=== PATIENT | female | born 1950 | race Hispanic/Latino ===

== ENCOUNTER → 2018-05-17 | Day surgery (SDC) | payer OTHER, BC ==
[2011-10-09 20:57] VITALS: BP 134/73
--- NOTE | 2018-05-17 11:00 | RAD REPORT ---
EXAM DESCRIPTION: Ultrasound-guided vacuum assisted left breast core biopsy CLINICAL HISTORY: Breast mass R92.8 COMPARISON: No comparisons FINDINGS: Informed consent was obtained and time-out was performed. The patient's left breast was prepped and draped in the usual sterile fashion. 1% lidocaine was used for local anesthetic purposes. Utilizing aseptic technique and ultrasound guidance, a 12 gauge vacuum assisted core biopsy device wa s used to obtain 2 core specimens through the mass of interest upper-outer quadrant left breast. A po st biopsy clip was then placed. All collected material was sent for cytology. Patient tolerated procedure well. IMPRESSION: Successful ultrasound guided vacuum assisted left breast mass biopsy.
== END ==
LOC: RAD 10:08
PROVIDERS: ATTEND Student in an Organized Health Care Education/Training Program
DX: C50.412 Malignant neoplasm of upper-outer quadrant of left female breast (principal); Z17.1 Estrogen receptor negative status [ER-]
CPT/HCPCS: 19083; 88305

== ENCOUNTER 2019-05-09 12:25 | Emergency (ER) | payer OTHER, BC ==
--- OUTSIDE RECORDS SUMMARY | 2019-05-09 12:42 | XMS REPORT | Summary of Care ---
:1950 Author Name Elaine Tracy M.A. Address Unavailable Unavailable , Care Team Providers Name Role Phone MATTHIAS Solorzano, ALEXANDRA Unavailable Unavailable MATTHIAS DICKERSON DC, ALEXANDRA Unavailable Unavailable Unavailable Unavailable Unavailable Functional Status Name Dates Details Functional status health issues are not documented Status: Name Dates Details Cognitive status health issues are not documented Status: Problems Name Dates Details Localized primary osteoarthritis of lower leg, right (715.16, M17.11) Status : Active Chronic pain of right knee (719.46, M25.561) Status: Active Medications Name Dates Details traMADol HCl - 50 MG Oral Tablet TAKE ONE TABLET BY MOUTH EVERY 8 HOURS NEEDED FOR PAIN Quantity: 30 Refills: 0 MATTHIAS M.D., ALEXANDRA Start : 06-Mar-2019 Active traMADol HCl - 50 MG Oral Tablet TAKE ONE TABLET BY MOUTH EVERY 8 HOURS NEEDED FOR PAIN Quantity: 30 Refills: 0 MATTHIAS M.D., ALEXANDRA Start : 04-Apr-2019 Active Allergies and Adverse Reactions Name Dates Details No Known Drug Allergies (Allergy) Status: Active Procedures Procedure Dates Details [QLH] CBC (INCLUDES DIFF/PLT) Date: 04-Apr-2019 [QLH] SED RATE BY MODIFIED WESTERGREN Date: 04-Apr-2019 [QLH] C-REACTIVE PROTEIN Date: 04-Apr-2019 Immunization Name Dates Details Immunizations not documented Social History Name Dates Details Unknown if ever smoked Vital Signs Date Test Result Details No Known Vitals to report Results Date Description Value Details [id number] US Extremity lower limited non vasc 40870 Extremity lower limited non SEE NOTES Comments: EXAM: Ext Lower limited non vascular USDATE: 03/22/2019 12:32 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 She presents with intermittent knee pain and apulling sensation. She endorses tenderness at the lateral and posterolateralaspect of her knee.COMPARISON: None avai lable.TECHNIQUE: Grayscale and color Doppler ultrasound of the posterior knee,backscanned by a musculoskeletal radiologist.FINDINGS:* No mass or lymphadenopathy is identified.* A small, simple-appeari ng, popliteal fossa cyst is identified about theposteromedial aspect of the knee. It measures approximately 1.0 x 0.5 x 0.6 cm(image 35). The patient does not endorse tenderness at this level.* At the area of maximum tenderness, limited images of the lateral knee werewithout a focal abnormality to explain the patient's symptoms.* Risks and benefits of a possible aspiration and steroid injection of t heBaker's cyst were discussed with the patient and Dr. Mullen's physician 'sassistant. The patient did not wish to pursue injection of the Nolan's cyst atthis time.IMPRESSION:1. No abnormality was ident ified on this limited ultrasound of the RIGHT kneeto explain the patient' s symptoms.2. Small, 1 cm Nolan's cyst.This case was discussed with MARION Pedroza for Dr. Mullen via phone on03/22/2019 at 130 9 hours.--Read by: Landen Jaramilloictated Date/time: 14:44Electronically Signed by: Landen Jaramillo MD 2015:06FINAL REPORT Plan of Care Name Dates Details Planned Observations Planned Goals not documented Planned Encounters Appointment; POLO COULTER, PDarwinADarwin On: 09-May-2019 10:45 Interventions Provided Medication ChangestraMADol HCl - 50 MG Oral Tablet - StartLabs/Procedures/ Imaging[QLH] CBC (INCLUDES DIFF/PLT); To Be Done: 04 Apr 2019[QL] C-REACTIVE PROTEIN; To Be Done: 04 Apr 2019[QL] SED RATE BY MODIFIED WESTERGREN; To Be Done: 04 Apr 2019 Instructions Name Dates Details Instructions not documented Encounters Appointment; ALEXANDRA MULLEN M.D. On: 15-Nov-2018 9:00 Encounter Diagnosis: Problem not documented Appointment; ALEXANDRA MULLEN M.D. On: 06-Mar-2019 13:10 Encounter Diagnosis: Problem not documented Appointment; ALEXANDRA MULLEN M.D. On: 04-Apr-2019 10:10 Encounter Diagnosis: Problem not documented
--- OUTSIDE RECORDS SUMMARY | 2019-05-09 12:42 | XMS REPORT | Summary of Care ---
:1950 Author Name MATTHIAS Solorzano, ALEXANDRA Address [facility] Unavailable , Care Team Providers Name Role Phone MATTHIAS Solorzano, ALEXANDRA Unavailable Unavailable MATTHIAS DICKERSON ND, ALEXANDRA Unavailable Unavailable Unavailable Unavailable Unavailable Functional Status Name Dates Details Functional status health issues are not documented Status: Name Dates Details Cognitive status health issues are not documented Status: Problems Name Dates Details Chronic pain of right knee (719.46, M25.561) Status: Active Medications Name Dates Details traMADol HCl - 50 MG Oral Tablet TAKE ONE TABLET BY MOUTH EVERY 8 HOURS NEEDED FOR PAIN Quantity: 30 Refills: 0 MATTHIAS Solorzano, ALEXANDRA Start : 06-Mar-2019 Active Allergies and Adverse Reactions Name Dates Details No Known Drug Allergies (Allergy) Status: Active Procedures Procedure Dates Details Procedures not documented Immunization Name Dates Details Immunizations not documented Social History Name Dates Details Unknown if ever smoked Vital Signs Date Test Result Details No Known Vitals to report Results Date Description Value Details [id number] [place] [facility] Extremity lower limited non SEE NOTES Comments: EXAM: Ext Lower limited non vascular USDATE: 03/22/2019 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 [...] on03/22/2019 at 130 9 hours.--Read by: Landen Jaramillo MDDictated Date/time: 14:44Electronically Signed by: Landen Jaramillo MD 2015:06FINAL REPORT Plan of Care Name Dates Details Planned Observations Planned Goals not documented Instructions Name Dates Details Instructions not documented Encounters Appointment; ALEXANDRA MULLEN M.D. On: 15-Nov-2018 9:00 Encounter Diagnosis: Problem not documented Appointment; ALEXANDRA MULLEN M.D. On: 06-Mar-2019 13:10 Encounter Diagnosis: Problem not documented
--- OUTSIDE RECORDS SUMMARY | 2019-05-09 12:42 | XMS REPORT | Summary of Care ---
:1950 Author Name MATTHIAS Solorzano, ALEXANDRA Address [facility] Unavailable , Care Team Providers Name Role Phone MATTHIAS Solorzano, ALEXANDRA Unavailable Unavailable MATTHIAS DICKERSON [place], ALEXANDRA Unavailable Unavailable Unavailable Unavailable Unavailable Functional Status Name Dates Details Functional status health issues are not documented Status: Name Dates Details Cognitive status health issues are not documented Status: Problems Name Dates Details Chronic pain of right knee (719.46, M25.561) Status: Active Localized primary osteoarthritis of lower leg, right (715.16, M17.11) Status : Active Medications Name Dates Details traMADol HCl [...] to report Results Date Description Value Details [id number] US Extremity lower limited non vasc 16237 Extremity lower limited non SEE NOTES Comments: EXAM: Ext Lower limited non vascular USDATE: 03/22/2019 12:32 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.INDICATION: M71.21 Synovial cyst of popliteal space [Nolan], right knee.ADDITIONAL INFORMATION: 68-year-old woman status post a remote [facility] () ght total kneearthroplasty 5 [...] Date/time: 14:44Electronically Signed by: Landen Jaramillo MD :06FINAL REPORT [id number] [QLH] CBC (INCLUDES DIFF/PLT) WBC 7.8 {K/CMM} Range: 3.7-10.4 RBC 4.56 {M/CMM} Range: 4.20-5.40 Hgb 12.3 g/dl Range: 12.0-16.0 Hct 39.3 % Range: 36.0-48.0 MCV 86.2 fL Range: 80.0-98.0 MCH 27.0 pg Range: 27.0-31.0 MCHC 31.3 g/dl (Below low threshold) Range: 32.0-36.0 RDW 19.1 % (Above high threshold) Range: 11.5-14.5 Platelet 325 {K/CMM} Range: 133-450 Mean Platelet Volume 10.2 fL Range: 7.4-10.4 [id number] [QLH] Differential Segmented Neutrophils 62.0 % Range: 45.0-75.0 Monocytes 12.6 % (Above high threshold) Range: 2.0-12.0 Lymphocytes 23.5 % Range: 20.0-40.0 Eosinophils 1.0 % Range: 0.0-4.0 Basophils 0.9 % Range: 0.0-1.0 Segs-Bands # 4.8 {K/CMM} Range: 1.5-8.1 Lymphocytes # 1.8 {K/CMM} Range: 1.0-5.5 Monocytes # 1.0 {K/CMM} (Above high threshold) Range: 0.0-0.8 Eosinophils # 0.1 {K/CMM} Range: 0.0-0.5 Basophils # 0.1 {K/CMM} Range: 0.0-0.2 [id number] [QLH] C-REACTIVE PROTEIN CRP 4.5 mg/L (Above high threshold) Range: <=2.9 [id number] [QLH] SED RATE BY MODIFIED WESTERGREN Sedimentation Rate 30 {mm/hr} (Above high threshold) Range: 0-20 Plan of Care Name Dates Details Planned Observations Planned Goals not documented Planned Encounters Appointment; POLO COULTER P.A. On: 09-May-2019 10:45 Instructions Name Dates Details Instructions not documented Encounters Appointment; ALEXANDRA MULLEN M.D. On: 15-Nov-2018 9:00 Encounter Diagnosis: Problem not documented Appointment; ALEXANDRA MULLEN M.D. On: 06-Mar-2019 13:10 Encounter Diagnosis: Problem not documented Appointment; ALEXANDRA MULLEN M.D. On: 04-Apr-2019 10:10 Encounter Diagnosis: Problem not documented
--- OUTSIDE RECORDS SUMMARY | 2019-05-09 12:42 | XMS REPORT ---
:1950 [facility] Address [address] Alvarez [address] [place] [id number] Care Team Providers Name Role Phone Unavailable Unavailable Unavailable Problems This patient has no known problems. Allergies, Adverse Reactions, Alerts This patient has no known allergies or adverse reactions. Medications This patient has no known medications. Encounters Start End Encounter Admission Attending Care Care Encounter Date/Time Date/Time Type Type Clinicians Facility Department ID 2018-11-25 Outpatient [facility] [id number] 14:30:24 2019-02-14 2019-02-14 Outpatient [facility] [id number] 09:40:00 09:40:00 2019-01-30 2019-01-30 Outpatient [facility] [id number] 13:01:00 13:01:00 2018-07-24 2018-07-24 [id number] 19:40:00 19:40:00 2018-07-01 2018-07-01 Outpatient [facility] [id number] 14:38:00 14:38:00
[2019-05-09] MEDS ORDERED: NA CHLORIDE 0.9% 1,000 ML ONE (14:14)
[2019-05-09] MEDS ORDERED: MECLIZINE HCL 12.5 MG TAB ONE (14:14)
[2019-05-09 14:57] LABS: Absolute Lymphocytes (CBC) 1.7 K/uL (0.7-4.9); Basophils % 0.6 % (0-1.3); Hematocrit 40.6 % (36.0-45.0); Lymphocytes % 25.1 % (15.3-44.8); RBC Red Blood Cell Count 4.93 M/uL (3.86-4.86)
--- NOTE | 2019-05-09 14:59 | RAD REPORT ---
EXAM DESCRIPTION: CT - Head Brain Wo Cont - 05/09/2019 2:15 pm CLINICAL HISTORY: Dizziness COMPARISON: None. TECHNIQUE: Computed axial tomography of the head was obtained. IV contrast was not requested. All CT scans are performed using dose optimization technique as appropriate and may include automated exposure control or mA/KV adjustment according to patient size. FINDINGS: An intracranial bleed is not seen . The ventricles are normal in caliber. No extra-axial fluid collection is noted. Fluid within the sinuses/ mastoids is not seen. IMPRESSION: No acute intracranial abnormality is seen. If patient's symptoms persist MRI of the bra in would be recommended.
[2019-05-09 15:01] LABS: Protime INR 1.34
[2019-05-09 15:07] LABS: BUN Blood Urea Nitrogen 15 mg/dL (7-18); Bicarbonate 29 mmol/L (21-32); Glucose Level 113 mg/dL (74-106); Magnesium 2.4 mg/dL (1.8-2.4); Sodium Level 143 mmol/L (136-145); Troponin (Emerg Dept Use Only) < 0.02 ng/mL (0.0-0.045)
--- NOTE | 2019-05-09 15:29 | EKG ---
Test Date: 2019-05-09 Test Time: 14:33:25 Disaster Response Director: YAMIL MEASUREMENT RESULTS: Intervals: Rate: 69 MT: 168 QRSD: 70 QT: 376 QTc: 402 [place]: P: 68 MT: 168 QRS: 1 T: 104 INTERPRETIVE STATEMENTS: Normal sinus rhythm Nonspecific ST and T wave abnormality Abnormal ECG Compared to ECG 03/19/2016 13:51:19 ST (T wave) deviation now present Electronically Signed On 05-09-19 15:28:35 CDT by Tino Villafuerte
--- NOTE | 2019-05-09 18:10 | RAD REPORT ---
EXAM DESCRIPTION: MRI - Brain Wo Cont - 05/09/2019 5:46 pm CLINICAL HISTORY: DIZZINESS Headache, drowsiness, CVA symptomology COMPARISON: Head Brain Wo Cont dated 05/09/2019 TECHNIQUE: Multi-sequence, multiplanar MR imaging of the brain was performed without contrast. FINDINGS: No intracranial hemorrhage, hydrocephalus or extra-axial fluid collections.Mild periventri cular chronic microvascular ischemia. No edema or shift of midline structures. No findings to suspect brain mass. DWI is negative for acute CVA. Midline structures are normally formed. Mastoid air cells and paranasal sinuses are essentially clear. IMPRESSION: Negative for acute CVA or other acute intracranial finding.
--- NOTE | 2019-05-09 18:23 | ER ---
Nurse's Notes [facility] Name: Wendi Calderon Age: 68 yrs Sex: Female : 1950 Arrival Date: 05/09/2019 Time: 12:28 Bed 14 Private MD: Diagnosis: Vertigo Presentation: 05/08 12:56 Chief complaint: Patient states: dizziness and headache that began this morning. Is ss worse when moving head. Dr. Wright took patient off of her blood pressure medication 2 months ago, but this AM her BP was 160/90, so she went ahead and took medicine. Coronavirus screen: The patient has NOT traveled to a country currently being monitored by the [facility] within the last 14 days. Proceed with normal triage procedures. Ebola Screen: Patient denies exposure to infectious person. Patient denies travel to an Ebola-affected area in the 21 days before illness onset. Initial Sepsis Screen: Does the patient meet any 2 criteria? No. Patient's initial sepsis screen is negative. Does the patient have a suspected source of infection? No. Patient's initial sepsis screen is negative. Risk Assessment: Do you want to hurt yourself or someone else? Patient reports no desire to harm self or others. 12:56 Method Of Arrival: Ambulatory ss 12:56 Acuity: VICK 3 ss Historical: - Allergies: 12:58 PENICILLINS; ss - PMHx: 15:11 None; tw2 - Immunization history:: Adult Immunizations up to date. - Social history:: Smoking status: Patient denies any tobacco usage or history of. - Hospitalizations: : No recent hospitalization is reported. Screenin:38 Abuse screen: Denies threats or abuse. Nutritional screening: No deficits noted. tw2 Tuberculosis screening: No symptoms or risk factors identified. Fall Risk None identified. Assessment: 13:39 General: Appears in no apparent distress. well groomed, Behavior is calm, cooperative, tw2 appropriate for age. Pain: Denies pain. Neuro: Level of Consciousness is awake, alert, obeys commands, Oriented to person, place, time, situation. Neuro: Reports dizziness. Cardiovascular: Heart tones S1 S2 Patient's skin is warm and dry. Respiratory: Airway is patent Respiratory effort is even, unlabored, Respiratory pattern is regular, symmetrical, Breath sounds are clear bilaterally. GI: No signs and/or symptoms were reported involving the gastrointestinal system. : No signs and/or symptoms were reported regarding the genitourinary system. EENT: No signs and/or symptoms were reported regarding the EENT system. Derm: No signs and/or symptoms reported regarding the dermatologic system. Musculoskeletal: Range of motion: intact in all extremities. 14:53 Reassessment: Patient appears in no apparent distress at this time. No changes from tw2 previously documented assessment. Patient and/or family updated on plan of care and expected duration. Pain level reassessed. Patient is alert, oriented x 3, equal unlabored respirations, skin warm/dry/pink. 15:45 Reassessment: Patient appears in no apparent distress at this time. No changes from tw2 previously documented assessment. Patient and/or family updated on plan of care and expected duration. Pain level reassessed. Patient is alert, oriented x 3, equal unlabored respirations, skin warm/dry/pink. 16:46 Reassessment: Patient appears in no apparent distress at this time. No changes from tw2 previously documented assessment. Patient and/or family updated on plan of care and expected duration. Pain level reassessed. Patient is alert, oriented x 3, equal unlabored respirations, skin warm/dry/pink. 17:45 Reassessment: Patient appears in no apparent distress at this time. No changes from tw2 previously documented assessment. Patient and/or family updated on plan of care and expected duration. Pain level reassessed. 18:35 Reassessment: Patient appears in no apparent distress at this time. No changes from tw2 previously documented assessment. Patient and/or family updated on plan of care and expected duration. Pain level reassessed. Patient is alert, oriented x 3, equal unlabored respirations, skin warm/dry/pink. Vital Signs: 12:56 BP 139 / 76; Pulse 72; Resp 16; Temp 97.0(TE); Pulse Ox 99% on R/A; Weight 70.31 kg; ss Height 5 ft. 2 in. (157.48 cm); Pain 0/10; 14:52 BP 151 / 100; Pulse 66; Resp 17; Pulse Ox 100% on R/A; tw2 15:14 BP 155 / 96; Pulse 70; Resp 17; Pulse Ox 100% on R/A; tw2 15:45 BP 168 / 98; Pulse 71; Resp 17; Pulse Ox 100% on R/A; tw2 16:46 BP 163 / 100; Pulse 72; Resp 17; Pulse Ox 100% on R/A; tw2 17:45 BP 136 / 83; Pulse 75; Resp 17; Pulse Ox 100% on R/A; tw2 18:36 BP 121 / 72; Pulse 75; Resp 17; Pulse Ox 100% on R/A; tw2 12:56 Body Mass Index 28.35 (70.31 kg, 157.48 cm) ED Course: 12:28 Patient arrived in ED. rg4 12:58 Triage completed. ss 12:58 Arm band placed on right wrist. ss 13:25 Fred Bearden MD is Attending Physician. rn 13:26 Bed in low position. Call light in reach. platinum and palladium kettle tender on. Pulse ox on. NIBP on. tw2 13:38 Ana Laurent RN is Primary Nurse. tw2 14:17 CT Head Brain wo Cont In Process Unspecified. EDMS 14:40 Inserted saline lock: 22 gauge in left antecubital area, using aseptic technique. Blood tw2 collected. 14:42 EKG done, by alignment technician. reviewed by Fred Bearden MD. at1 17:46 Brain Wo Cont MRI In Process Unspecified. EDMS 18:22 Jack Liu MD is Referral Physician. rn 18:34 No provider procedures requiring assistance completed. IV discontinued, intact, tw2 bleeding controlled, No redness/swelling at site. Pressure dressing applied. Administered Medications: 14:40 Drug: Meclizine 50 mg Route: PO; tw2 15:13 Follow up: Response: No adverse reaction; Marked relief of symptoms tw2 14:43 Drug: NS 0.9% 1000 ml Route: IV; Rate: 1000 ml; Site: right antecubital; tw2 16:30 Follow up: IV Status: Completed infusion; IV Intake: 1000ml tw2 Intake: 16:30 IV: 1000ml; Total: 1000ml. tw2 Outcome: 18:22 Discharge ordered by . rn 18:37 Discharged to home ambulatory, with significant other. tw2 18:37 Condition: stable 18:37 Discharge instructions given to patient, significant other, Instructed on discharge instructions, follow up and referral plans. no drinking with medication, no driving heavy equipment, medication usage, Demonstrated understanding of instructions, follow-up care, medications, Prescriptions given X 2. 18:37 Patient left the ED. tw2 Signatures: Dispatcher [employer] EDMS Fred Bearden MD MD rn Smirch, Shelby, RN RN Sarahy South, jewelry salesperson EKG Tat1 Ana Laurent RN RN tw2 Caty Liu 4
--- NOTE | 2019-05-09 18:23 | EDPHYS ---
Physician Documentation [facility] Name: Wendi Calderon Age: 68 yrs Sex: Female : 1950 Arrival Date: 05/09/2019 Time: 12:28 Bed 14 Private MD: ED Physician Fred Bearden HPI: 05/08 14:00 This 68 yrs old Female presents to ER via Ambulatory with complaints of rn Dizziness. 14:00 The patient presents with sense of spinning. Onset: The symptoms/episode began/occurred rn this morning. Context: occurred at home, occurred while the patient was getting up from bed, just prior to the episode the patient experienced no apparent symptoms. Modifying factors: The symptoms are alleviated by closing eyes, holding head still, the symptoms are aggravated by movement of head, standing up, changing position. Associated signs and symptoms: Pertinent positives: nausea, Pertinent negatives: abdominal pain, blurred vision, chest pain, confusion, head injury, seizure, shortness of breath, syncope, tingling, vomiting. Severity of symptoms: At their worst the symptoms were moderate in the emergency department the symptoms have improved. The patient has experienced similar episodes in the past. The patient has not recently seen a physician. Reports when got up from bed had sudden onset dizziness, feeling like spinning, has had less severe similar episodes in past, and Dr. Wright told her in past might have vertigo, but today worse. Assoc with nausea. NO chest pain/sob/abd pain. Better when holding head still and closing eyes. No other focal neurological complaint. . Historical: - Allergies: 12:58 PENICILLINS; ss - PMHx: 15:11 None; tw2 - Immunization history:: Adult Immunizations up to date. - Social history:: Smoking status: Patient denies any tobacco usage or history of. - Hospitalizations: : No recent hospitalization is reported. ROS: 14:00 Constitutional: Negative for fever, chills, and weight loss, Eyes: Negative for injury, rn pain, redness, and discharge, Neck: Negative for injury, pain, and swelling, Cardiovascular: Negative for chest pain, palpitations, and edema, Respiratory: Negative for shortness of breath, cough, wheezing, and pleuritic chest pain, Abdomen/GI: Negative for abdominal pain, vomiting, diarrhea, and constipation, MS/Extremity: Negative for injury and deformity, Skin: Negative for injury, rash, and discoloration, Neuro: Negative for headache, weakness, numbness, tingling, and seizure. Exam: 14:00 Constitutional: This is a well developed, well nourished patient who is awake, alert, rn and in no acute distress. Head/Face: Normocephalic, atraumatic. Eyes: Pupils equal round and reactive to light, extra-ocular motions intact. Lids and lashes normal. Conjunctiva and sclera are non-icteric and not injected. Cornea within normal limits. Periorbital areas with no swelling, redness, or edema. NO nystagmus. ENT: MMM Cardiovascular: Regular rate and rhythm. No pulse deficits. Respiratory: No increased work of breathing, no retractions or nasal flaring. Abdomen/GI: soft, non-tender MS/ Extremity: Pulses equal, no cyanosis. Neurovascular intact. Full, normal range of motion. Equal circumference. Neuro: Awake and alert, GCS 15, oriented to person, place, time, and situation. Cranial nerves II-XII grossly intact. Motor strength 5/5 in all extremities. Sensory grossly intact. Cerebellar exam normal. Vital Signs: 12:56 BP 139 / 76; Pulse 72; Resp 16; Temp 97.0(TE); Pulse Ox 99% on R/A; Weight 70.31 kg; ss Height 5 ft. 2 in. (157.48 cm); Pain 0/10; 14:52 BP 151 / 100; Pulse 66; Resp 17; Pulse Ox 100% on R/A; tw2 15:14 BP 155 / 96; Pulse 70; Resp 17; Pulse Ox 100% on R/A; tw2 15:45 BP 168 / 98; Pulse 71; Resp 17; Pulse Ox 100% on R/A; tw2 16:46 BP 163 / 100; Pulse 72; Resp 17; Pulse Ox 100% on R/A; tw2 17:45 BP 136 / 83; Pulse 75; Resp 17; Pulse Ox 100% on R/A; tw2 18:36 BP 121 / 72; Pulse 75; Resp 17; Pulse Ox 100% on R/A; tw2 12:56 Body Mass Index 28.35 (70.31 kg, 157.48 cm) MDM: 13:25 Patient medically screened. rn 16:28 Differential diagnosis: cardiac arrhythmia, CVA, generalized weakness, hypovolemia, rn idiopathic dizziness, near-syncope, TIA, vertigo. Data reviewed: vital signs, nurses notes, lab test result(s), EKG, radiologic studies, CT scan, and as a result, I will. Counseling: I had a detailed discussion with the patient and/or guardian regarding: the historical points, exam findings, and any diagnostic results supporting the discharge/admit diagnosis, lab results, radiology results, the need for outpatient follow up, to return to the emergency department if symptoms worsen or persist or if there are any questions or concerns that arise at home. ED course: Pt feels much better, no acute findings on ct head/bloodwork/ecg, pending MRI to rule out any central cause of vertigo. Is now ambulatory to bathroom without assistance, if MRI normal will dc home with neuro f/u. . 05/08 13:52 Order name: Basic Metabolic Panel; Complete Time: 15:18 rn 05/08 13:52 Order name: CBC with Diff; Complete Time: 15: rn 05/08 13:52 Order name: Magnesium; Complete Time: 15: rn 05/08 13:52 Order name: Protime (+inr); Complete Time: 15:18 rn 05/08 13:52 Order name: Ptt, Activated; Complete Time: 15:18 rn 05/08 13:52 Order name: Troponin (emerg Dept Use Only); Complete Time: 15:18 rn 05/08 13:52 Order name: IV Start; Complete Time: 15:13 rn 05/08 13:52 Order name: CT Head Brain wo Cont; Complete Time: 15:18 rn 05/08 13:52 Order name: EKG; Complete Time: 13:53 rn 05/08 13:52 Order name: Cardiac monitoring; Complete Time: 14:07 rn 05/08 14:47 Order name: Urine Dipstick--Ancillary (enter results) bd 05/08 15:58 Order name: Brain Wo Cont MRI; Complete Time: 18:22 rn 05/08 13:52 Order name: EKG - Nurse/Tech; Complete Time: 14:44 rn 05/08 13:52 Order name: Labs collected and sent; Complete Time: 14:53 rn 05/08 13:52 Order name: NPO; Complete Time: 14:53 rn 05/08 13:52 Order name: O2 Per Protocol; Complete Time: 14:07 rn 05/08 13:52 Order name: O2 Sat Monitoring; Complete Time: 14: rn 05/08 13:52 Order name: Urine Dipstick-Ancillary (obtain specimen); Complete Time: 14:08 rn Administered Medications: 14:40 Drug: Meclizine 50 mg Route: PO; tw2 15:13 Follow up: Response: No adverse reaction; Marked relief of symptoms tw2 14:43 Drug: NS 0.9% 1000 ml Route: IV; Rate: 1000 ml; Site: right antecubital; tw2 16:30 Follow up: IV Status: Completed infusion; IV Intake: 1000ml tw2 Disposition: 05/09/19 18:22 Discharged to Home. Impression: Vertigo. - Condition is Stable. - Discharge Instructions: Benign Positional Vertigo, Vertigo. - Prescriptions for Zofran ODT 4 mg Oral tablet,disintegrating - place 1 tablet by TRANSLINGUAL route every 8 hours As needed; 20 tablet. Meclizine 25 mg Oral Tablet - take 1 tablet by ORAL route every 8 hours As needed; 30 tablet. - Medication Reconciliation Form, Thank You Letter, Antibiotic Education, Prescription Opioid Use form. - Follow up: Jack Liu; When: 5 - 6 days; Reason: Recheck today's complaints, Re-evaluation by your physician. - Problem is new. - Symptoms have improved. Signatures: Dispatcher [employer] EDMS Fred Bearden MD MD rn Smirch, Shelby, RN RN Ana Laurent RN RN tw2 Corrections: (The following items were deleted from the chart) 18:37 18:22 05/09/2019 18:22 Discharged to Home. Impression: Vertigo. Condition is Stable. tw2 Discharge Instructions: Benign Positional Vertigo, Vertigo. Prescriptions for Zofran ODT 4 mg Oral tablet,disintegrating - place 1 tablet by TRANSLINGUAL route every 8 hours As needed; 20 tablet, Meclizine 25 mg Oral Tablet - take 1 tablet by ORAL route every 8 hours As needed; 30 tablet. and Forms are Medication Reconciliation Form, Thank You Letter, Antibiotic Education, Prescription Opioid Use. Follow up: Jack Liu; When: 5 - 6 days; Reason: Recheck today's complaints, Re-evaluation by your physician. Problem is new. Symptoms have improved. rn
[2019-05-09 19:01] VITALS: TEMP 97
[2019-05-09 19:03] VITALS: O2SAT 100
[2019-05-09 19:11] VITALS: BP 121/72
[2019-05-09 20:45] LABS: Urine Blood NEGATIVE (NEG); Urine Glucose NEGATIVE (NEG); Urine Protein NEGATIVE (NEG); Urine pH 7.5 (5.0-7.0)
== END 2019-05-09 18:37 | disposition home or self-care (01) ==
LOC: ER 12:25
DX: R42 Dizziness and giddiness (principal); Z88.0 Allergy status to penicillin
CPT/HCPCS: 96361; 93005; 85025; 80048; 36415; 83735; 85610; 85730; 81003; 84484; 70450; 70551; 96360; 99285; J7030; J8597